=== PATIENT | female | born 2000 | race Caucasian/White ===

== ENCOUNTER 2020-06-08 04:15 | Emergency (ER) | payer OTHER ==
[~2020-06-08] VITALS: Ht 165.1 cm; Wt 75.0 kg
[2020-06-08] MEDS ORDERED: FAMOTIDINE 20 MG TABLET PO ONE (04:30)
[2020-06-08] MEDS ORDERED: EPINEPHRINE 1 MG/ML, 1ML ONE (04:30)
[2020-06-08] MEDS ORDERED: EPINEPHRINE 1 MG/ML, 1ML IM ONE (04:30)
[2020-06-08] MEDS ORDERED: FAMOTIDINE 20 MG TABLET ONE (04:30)
[2020-06-08] MEDS ORDERED: DIPHENHYDRAMINE 25 MG CAPSULE ONE (04:52)
[2020-06-08] MEDS ORDERED: DIPHENHYDRAMINE 25 MG CAPSULE PO ONE (05:00)
--- NOTE | 2020-06-08 05:27 | NUR ---
Patient comes in with compalints of hives all over her body. Pt stated that they started yesterday, took bendryal. Woke up to more hives all over her body. MD at bedside
[2020-06-08 05:31] VITALS: BP 124/68
== END 2020-06-08 05:33 | disposition home or self-care (01) ==
LOC: ED 05:14
DX: L50.9 Urticaria, unspecified (principal)
CPT/HCPCS: 96372; 99284; J0171; J7512; Q0163

== ENCOUNTER → 2020-07-01 | Outpatient (CLI) | payer OTHER ==
[2020-07-01 12:08] LABS: ALANINE AMINOTRANSFERASE 15 U/L (12-78); ALBUMIN 3.7 g/dL (3.4-5.0); ANION GAP 5 mmol/L (5-15); CALCIUM 9.1 mg/dL (8.5-10.1); CHLORIDE 112 mmol/L (98-107)
[2020-07-01 12:18] LABS: HCT (SEDRATE) 42.8 % (34.6-47.8)
[2020-07-01 12:19] LABS: ALKALINE PHOSPHATASE 47 U/L (45-117); BASOPHILS % (AUTO) 1 % (0-1); CREATININE 0.97 mg/dL (0.55-1.02); EOSINOPHILS % (AUTO) 1 % (1-7); LYMPHOCYTES % (AUTO) 33 % (22-44); MEAN CORPUSCULAR HEMOGLOBIN 31.6 pg (27.0-34.8); MEAN CORPUSCULAR HGB CONC 34.5 g/dL (32.4-35.8); MEAN PLATELET VOLUME 8.8 fL (7.4-10.4); MONOCYTES % (AUTO) 7 % (2-9); NEUTROPHILS % (AUTO) 59 % (42-75); PLATELET COUNT 255 x10^3/uL (130-400); RED CELL DISTRIBUTION WIDTH 12.4 % (9.6-15.2); TOTAL PROTEIN 7.3 g/dL (6.4-8.2)
[2020-07-01 12:29] LABS: MD NO
== END | disposition home or self-care (01) ==
LOC: LAB 11:25
PROVIDERS: ATTEND Nurse Practitioner
DX: L50.9 Urticaria, unspecified (principal); T78.2XXA Anaphylactic shock, unspecified, initial encounter
CPT/HCPCS: 36415; 80053; 83520; 84443; 85025; 85651; 86038; 86160; 86352